=== PATIENT | female | born 1990 | race Two or more races ===

== ENCOUNTER 2025-07-22 15:41 | Emergency (ER) | payer MEDICAID, SELFPAY ==
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
== END 2025-07-22 16:15 | disposition left against medical advice (07) ==
LOC: SERX 16:23
PROVIDERS: Emergency Provider Emergency Medicine
DX: Z53.21 Procedure and treatment not carried out due to patient leaving prior to being seen by health care provider (principal)